=== PATIENT | female | born 1980 | race Caucasian/White ===

== ENCOUNTER → 2019-08-18 | Outpatient (CLI) | payer OTHER ==
[2019-08-18 11:26] LABS: BASO % 0.2 % (0.0-1.0); EOS # 0.2 10^3/uL (0.0-0.5); EOS % 2.8 % (0.0-3.0); HEMATOCRIT 40.8 % (36.0-47.0); HEMOGLOBIN 13.4 g/dl (12.0-15.5); LYMPH # 1.2 10^3/uL (1.5-5.0); LYMPH % 21.8 % (24.0-44.0); MEAN CORPUSCULAR HEMOGLOBIN 29.8 pg (27.0-33.0); MEAN CORPUSCULAR HGB CONC 32.8 g/dl (32.0-36.5); MEAN CORPUSCULAR VOLUME 90.7 fl (80.0-96.0); MONO # 0.3 10^3/uL (0.0-0.8); MONO % 5.6 % (0.0-5.0); NEUTROPHILS % 69.2 % (36.0-66.0); PLATELET COUNT, AUTOMATED 250 10^3/uL (150-450); WHITE BLOOD COUNT 5.7 10^3/uL (4.0-10.0)
[2019-08-18 11:39] LABS: ALBUMIN 3.6 GM/DL (3.2-5.2); ALT/SGPT 26 U/L (12-78); BILIRUBIN,TOTAL 0.9 MG/DL (0.2-1.0); BLOOD UREA NITROGEN 10 MG/DL (7-18); CALCIUM LEVEL 8.7 MG/DL (8.5-10.1); CARBON DIOXIDE LEVEL 31 MEQ/L (21-32); CHLORIDE LEVEL 105 MEQ/L (98-107); CHOLESTEROL LEVEL 179 MG/DL (<200); CHOLESTEROL RISK RATIO 3.808 (<5); FREE T4 0.94 NG/DL (0.76-1.46); GLOMERULAR FILTRATION RATE > 60.0 (>58); GLUCOSE, FASTING 79 MG/DL (70-100); HDL CHOLESTEROL 47 MG/DL (>40); LDL CHOLESTEROL 121 MG/DL (<100); NON-HDL-C 132 MG/DL; POTASSIUM SERUM 4.5 MEQ/L (3.5-5.1); SODIUM LEVEL 140 MEQ/L (136-145); TOTAL PROTEIN 6.6 GM/DL (6.4-8.2); TRIGLYCERIDES LEVEL 56 MG/DL (<150)
[2019-08-18 11:47] LABS: HEMOGLOBIN A1c 4.8 %
[2019-08-18 13:01] LABS: TOTAL 25(OH) VITAMIN D 27.5 NG/ML (30.0-100.0)
== END ==
LOC: M LRY 08:52
PROVIDERS: ATTEND Physician Assistant
DX: Z13.29 Encounter for screening for other suspected endocrine disorder (principal); Z13.220 Encounter for screening for lipoid disorders

== ENCOUNTER → 2020-12-18 | Outpatient (CLI) | payer OTHER ==
--- NOTE | 2020-12-26 10:38 | REPMRS ---
Patient History The patient states she had a clinical breast exam in 07/21 Family history of colorectal cancer at age 50 or over in maternal grandmother. Taking hormonal contraceptives for 10 years. Digital Woman Screen Mammo: December 18, 2020 - Exam #: [id number] Bilateral CC and MLO view(s) were taken. Technologist: Gabby Roy, Technologist Prior study comparison: 2019, bilateral digital mammo screening bilat, [facility]. Digital screening (2D) mammography was performed bilaterally in the CC and MLO projections. Additionally, breast tomosynthesis (3D mammography) was performed bilaterally in the CC and MLO projections. Todays exam was compared to the prior exams(s). By history, the patient has no complaints of a palpable breast abnormality or other significant breast complaints. The breasts are unchanged in size and shape.Once again, dense heterogenous nodular fibroglandular elements are seen bilaterally in a stable appearing pattern but to such a degree that the sensitivity of the mammogram in detecting cancer is somewhat decreased. There are no france-soft tissue densities or spiculated masses. There is no internal architectural distortion. There are no suspicious france-calcific clusters. Skin thickening or nipple retraction is not present. IMPRESSION: BI-RADS Category 2- Benign Findings(s). There is no evidence of malignant alteration of the breasts. Followup examination recommended in one year. The Volpara volumetric breast density category is B, there are scattered areas of fibroglandular density. This mammogram was read with the assistance of ExpertFlyer,an FDA approved computer aided detection system for mammography. The lifetime Tyrer-Cuzick score is 11.1 % Negative x-ray reports should not delay surgical consultation if a dominant or clinically suspicious mass is present. Not all breast cancers can be identified by mammography. Therefore, we recommend that you continue to perform regular breast self-examination and physical examination and then promptly contact your physician of any concerns or changes. Adenosis and dense breasts may obscure an underlying neoplasm. Assessment: BI-RADS/ACR category 2 mammogram. Benign Findings. Recommendation Routine screening mammogram of both breasts in 1 year. Electronically Signed By: Reji Veras MD 12/26/20 1037
== END ==
LOC: M WHC 14:27
PROVIDERS: ATTEND Physician Assistant
DX: Z12.31 Encounter for screening mammogram for malignant neoplasm of breast (principal); Z80.0 Family history of malignant neoplasm of digestive organs

== ENCOUNTER 2021-06-26 17:50 | Emergency (ER) | payer OTHER ==
[~2021-06-26] VITALS: Ht 175.3 cm; Wt 90.5 kg
--- OUTSIDE RECORDS SUMMARY | 2021-06-26 17:55 | CCD ---
Author Author [facility] Organization [facility] Address Unknown Phone Unavailable Care Team Providers Care Aircraft Communicator Name Role Phone MEDENT_[id number], NA Unavailable Unavailable LAROCK, Jeannine KOCH DRY ROOM ATTENDANT Unavailable Unavailable LAROCK, Jeannine KOCH DRY ROOM ATTENDANT Unavailable Unavailable LAROCK, Jeannine KOCH DRY ROOM ATTENDANT Unavailable Unavailable LAROCK, Jeannine KOCH DRY ROOM ATTENDANT Unavailable Unavailable LAROCK, Jeannine KOCH DRY ROOM ATTENDANT Unavailable Unavailable LAROCK, Jeannine KOCH DRY ROOM ATTENDANT Unavailable Unavailable LAROCK, Jeannine KOCH DRY ROOM ATTENDANT Unavailable Unavailable LAROCK, Jeannine KOCH DRY ROOM ATTENDANT Unavailable Unavailable LAROCK, Jeannine KOCH NP Unavailable Unavailable LAROCK, Jeannine KOCH NP Unavailable Unavailable LAROCK, Jeannine KOCH NP Unavailable Unavailable LAROCK, Jeannine KOCH NP Unavailable Unavailable LAROCK, Jeannine KOCH NP Unavailable Unavailable LAROCK, Jeannine KOCH NP Unavailable Unavailable LAROCK, Jeannine KOCH NP Unavailable Unavailable LAROCK, Jeannine KOCH NP Unavailable Unavailable LAROCK, Jeannine KOCH NP Unavailable Unavailable LAROCK, Jeannine KOCH NP Unavailable Unavailable LAROCK, Jeannine KOCH NP Unavailable Unavailable LAROCK, Jeannine KOCH DRY ROOM ATTENDANT Unavailable Unavailable LAROCK, Jeannine KOCH DRY ROOM ATTENDANT Unavailable Unavailable LAROCK, Jeannine KOCH DRY ROOM ATTENDANT Unavailable Unavailable ALEJANDRA, WIN EMMANUEL DRY ROOM ATTENDANT Unavailable Unavailable ALEJANDRA, WIN EMMANUEL DRY ROOM ATTENDANT Unavailable Unavailable ALEJANDRA, WIN EMMANUEL DRY ROOM ATTENDANT Unavailable Unavailable ALEJANDRA, WIN EMMANUEL DRY ROOM ATTENDANT Unavailable Unavailable ALEJANDRA, WIN EMMANUEL DRY ROOM ATTENDANT Unavailable Unavailable ALEJANDRA, WIN EMMANUEL DRY ROOM ATTENDANT Unavailable Unavailable ALEJANDRA, WIN EMMANUEL DRY ROOM ATTENDANT Unavailable Unavailable ALEJANDRA, WIN EMMANUEL DRY ROOM ATTENDANT Unavailable Unavailable ALEJANDRA, WIN EMMANUEL DRY ROOM ATTENDANT Unavailable Unavailable ALEJANDRA, WIN EMMANUEL DRY ROOM ATTENDANT Unavailable Unavailable ALEJANDRA, WIN EMMANUEL DRY ROOM ATTENDANT Unavailable Unavailable ALEJANDRA, WIN EMMANUEL DRY ROOM ATTENDANT Unavailable Unavailable ALEJANDRA, WIN EMMANUEL DRY ROOM ATTENDANT Unavailable Unavailable ALEJANDRA, WIN EMMANUEL DRY ROOM ATTENDANT Unavailable Unavailable ALEJANDRA, WIN EMMANUEL DRY ROOM ATTENDANT Unavailable Unavailable ALEJANDRA, WIN EMMANUEL DRY ROOM ATTENDANT Unavailable Unavailable ALEJANDRA, WIN EMMANUEL DRY ROOM ATTENDANT Unavailable Unavailable ALEJANDRA, WIN EMMANUEL DRY ROOM ATTENDANT Unavailable Unavailable ALEJANDRA, WIN EMMANUEL DRY ROOM ATTENDANT Unavailable Unavailable ALEJANDRA, WIN EMMANUEL DRY ROOM ATTENDANT Unavailable Unavailable ALEJANDRA, WIN EMMANUEL DRY ROOM ATTENDANT Unavailable Unavailable ALEJANDRA, WIN EMMANUEL DRY ROOM ATTENDANT Unavailable Unavailable ALEJANDRA, WIN EMMANUEL DRY ROOM ATTENDANT Unavailable Unavailable O'marshall, A Marcial PA Unavailable Unavailable O'marshall, A Marcial PA Unavailable Unavailable O'marshall, A Marcial PA Unavailable Unavailable O'marshall, A Marcial PA Unavailable Unavailable O'marshall, A Marcial PA Unavailable Unavailable O'marshall, A Marcial PA Unavailable Unavailable O'marshall, A Marcial PA Unavailable Unavailable O'marshall, A Marcial PA Unavailable Unavailable O'marshall, A Marcial PA Unavailable Unavailable O'marshall, A Marcial PA Unavailable Unavailable O'marshall, A Marcial PA Unavailable Unavailable O'marshall, A Marcial PA Unavailable Unavailable O'marshall, A Marcial PA Unavailable Unavailable O'marshall, A Marcial PA Unavailable Unavailable O'marshall, A Marcial PA Unavailable Unavailable O'marshall, A Marcial PA Unavailable Unavailable O'marshall, A Marcial PA Unavailable Unavailable O'marshall, A Marcial PA Unavailable Unavailable O'marshall, A Marcial PA Unavailable Unavailable O'marshall, A Marcial PA Unavailable Unavailable O'marshall, A Marcial PA Unavailable Unavailable O'marshall, A Marcial PA Unavailable Unavailable O'marshall, A Marcial PA Unavailable Unavailable O'marshall, A Marcial PA Unavailable Unavailable O'marshall, A Marcial PA Unavailable Unavailable O'marshall, A Marcial PA Unavailable Unavailable O'marshall, A Marcial PA Unavailable Unavailable O'marshall, A Marcial PA Unavailable Unavailable O'marshall, A Marcial PA Unavailable Unavailable O'marshall, A Marcial PA Unavailable Unavailable O'marshall, A Marcial PA Unavailable Unavailable O'marshall, A Marcial PA Unavailable Unavailable O'marshall, A Marcial PA Unavailable Unavailable Re-disclosure Warning The records that you are about to access may contain information from federally-assisted alcohol or drug abuse programs. If such information is present, then the following federally mandated warning applies: This information has been disclosed to you from records protected by federal confidentiality rules (42 CFR part 2). The federal rules prohibit you from making any further disclosure of this information unless further disclosure is expressly permitted by the written consent of the person to whom it pertains or as otherwise permitted by 42 CFR part 2. A general authorization for the release of medical or other information is NOT sufficient for this purpose. The Federal rules restrict any use of the information to criminally investigate or prosecute any alcohol or drug abuse patient.The records that you are about to access may contain highly sensitive health information, the redisclosure of which is protected by Article 27-F of the [facility] Public Health law. If you continue you may have access to information: Regarding HIV / AIDS; Provided by facilities licensed or operated by the [facility] Office of Mental Health; or Provided by the [facility] Office for People With Developmental Disabilities. If such information is present, then the following [facility] mandated warning applies: This information has been disclosed to you from confidential records which are protected by state law. State law prohibits you from making any further disclosure of this information without the specific written consent of the person to whom it pertains, or as otherwise permitted by law. Any unauthorized further disclosure in violation of state law may result in a fine or shelter sentence or both. A general authorization for the release of medical or other information is NOT sufficient authorization for further disc losure. Encounters Encounter Providers Location Date Indications Data Source(s ) Outpatient Attender: Marcial [facility] 04/30/2021 01:00:00 PM EDT TANYA ([facility]) Outpatient Attender: ZEE VENEGAS NP 01/31 09:56:37 AM EDT - 02/19/2021 10:10:05 AM EDT [facility] ([facility] ) Outpatient Attender: [facility]cial [facility] 11/01/2020 02:00:00 PM EST TANYA ([facility]) Outpatient Attender: SHIV MARTÍNEZ_806 [facility] 06/23/2020 11:00:00 AM EDT MEDALLI ([facility]) Outpatient Attender: EMMANUEL ALEJANDRA NP 10:55:00 AM EDT - 06/22/2020 10:55:00 AM EDT [facility] Outpatient Attender: EMMANUEL ALEJANDRA NP Family Practice 05/23/2020 10 :30:00 AM EDT MEDENT ([facility]) Outpatient Attender: EMMANUEL ALEJANDRA NP 10:27:00 AM EDT - 05/23/2020 10:27:00 AM EDT [facility] Outpatient Attender: EMMANUEL ALEJANDRA NP 10:08:00 AM EDT - 04/26/2020 10:08:00 AM EDT [facility] Immunizations Vaccine Date Status Description Data Source(s) COVID-19 VACCINE Pfizer 10/25/2020 12:00:00 AM EST completed [facility] Vaccine Series Complete: NOThis Data was Submitted to [facility] Via [employer] in 2011. IIV4 06/23/2020 10:43:00 AM EDT completed MEDENT ([facility]) Medications Medication Brand Name Start Date Product Form Dose Route Admi nistrative Instructions Pharmacy Instructions Status Indications Reaction Description Data Source(s) Injection Ketorolac Tromethamine Per 15 MG (Toradol) 04/30/2021 12:00:00 AM EDT completed MEDENT ([facility]) Medication administered onsite Naproxen 500 MG Oral Tablet Naproxen 04/30/2021 12:00:00 AM EDT active [facility] ([facility]) Cyclobenzaprine hydrochloride 10 MG Oral Tablet Cyclobenzapr ine HCL 04/30/2021 12:00:00 AM EDT ORAL active M EDENT ([facility]) Immunization Administration Single Or Combination 06/23/2020 12:00:00 AM EDT completed MEDENT ([facility]) Medication administered onsite Insurance Providers Payer name Policy type / Coverage type Policy ID Covered libertarian ID Covered libertarian's relationship to moeller Policy Moeller Plan Information Family Health Plan / [id number] Self [id number] [facility] [id number] SP [id number] [facility] [place] [id number] [facility] [place] [id number] 18 [id number] Problems, Conditions, and Diagnoses Code Display Name Description Problem Type Effective Dates Data Source(s) [id number] Encounter for routine checking of intrau terine contraceptive device Encounter for routine checking of intrauterine contraceptive device Diagnosis 06/22/2020 10:55:00 AM EDT [facility] [id number] Encounter for removal and re insertion of intrauterine contraceptive device Encounter for removal and reinsertion of intrauterine contraceptive device Diagnosis 05/23/2020 10:27:00 AM EDT [facility] G43.009 Migraine without aura, not refractory Mi graine without aura, not refractory Problem 11/01/2020 12:00:00 AM EST MED[facility] ([facility]) Z97.5 IUD contraception IUD contraception Problem 11/01/2020 12:00:00 AM EST MED[facility] ([facility]) Surgeries/Procedures Procedure Description Date Indications Data Source(s) OFFICE OUTPATIENT VISIT 15 MINUTES 04/30/2021 12:00:00 AM EDT MEDENT ([facility]) Mammography (procedure) 12/18/2020 12:00:00 AM EDT MED[facility] ([facility]) PERIODIC PREVENTIVE MED EST PATIENT 40-64YRS 12:00:00 AM EST MED[facility] ([facility]) Results ID Date Data Source [id number] 05/23/2020 11:22:00 AM EDT MED[facility] ([facility]) Name Value Range Interpretation Code Description Data Juli rce(s) Supporting Document(s) Chlamydia trachomatis,Tegan Laboratory test result MEDENT ([facility]) {SOURCE: Genital~.~.~Z30.433 Source: Laboratory test result MEDENT ([facility]) {SOURCE: Genital~.~.~Z30.433 Neisseria gonorrhoeae,Tegan Laboratory test result MED[facility] ([facility]) {SOURCE: Genital~.~.~Z30.433 ID Date Data Source [id number] 05/25/2020 08:25:00 PM EDT [facility] Name Value Range Interpretation Code Description Data Juli rce(s) Supporting Document(s) SOURCE: Genital [facility] Chlamydia trachomatis rRNA [Presence] in Unspecified specimen by Probe and target amplification method Negative Negative [facility] Neisseria gonorrhoeae rRNA [Presence] in Unspecified specimen by Probe and target amplification method Negative Negative [facility] ID Date Data Source [id number] 05/23/2020 10:37:00 AM EDT MED[facility] ([facility]) Name Value Range Interpretation Code Description Data Juli rce(s) Supporting Document(s) Inhouse Urine Test [facility] Procedure Social History No Information Vital Signs ID Date Data Source UNK Name Value Range Interpretation Code Description Data Source(s) Body mass index (BMI) [Ratio] 29.2 kg/m2 29.2 k g/m2 MED[facility] ([facility]) Heart rate 88 /min 88 /min MED[facility] ([facility]) Respiratory rate 18 /min 18 /min MED[facility] ( [facility]) Body temperature 97.9 [degF] 97.9 [degF] MEDENT ([facility]) Oxygen saturation in Arterial blood by Pulse oximetry 99 % 99 % [facility] ([facility] [place] body weight 140 [lb_av] 140 [lb_av] MEDEN T ([facility]) Systolic blood pressure 132 mm[Hg] 132 mm[Hg] EDENT ([facility]) Diastolic blood pressure 85 mm[Hg] 85 mm[Hg] MED[facility] ([facility]) Body height 68 [in_i] 68 [in_i] [facility] 5'8" Body weight 192.00 [lb_av] 192.00 [lb_av] MEDEN T ([facility]) Body weight 185.50 [lb_av] 185.50 [lb_av] MEDEN T ([facility]) Body mass index (BMI) [Ratio] 28.2 kg/m2 28.2 k g/m2 MED[facility] ([facility]) Heart rate 93 /min 93 /min MED[facility] ([facility]) Respiratory rate 18 /min 18 /min MED[facility] ( [facility]) Body temperature 98.5 [degF] 98.5 [degF] MEDENT ([facility]) Oxygen saturation in Arterial blood by Pulse oximetry 98 % 98 % [facility]) [place] body weight 140 [lb_av] 140 [lb_av] MEDEN T ([facility]) Systolic blood pressure 126 mm[Hg] 126 mm[Hg] M EDENT ([facility]) Diastolic blood pressure 64 mm[Hg] 64 mm[Hg] MEDENT ([facility]) Body height 68 [in_i] 68 [in_i] MED[facility] ([facility]) 5'8" Body weight 184.00 [lb_av] 184.00 [lb_av] MEDEN T ([facility]) Body weight 83.462 kg 83.462 kg MED[facility] ([facility]) Body height 69.25 [in_i] 69.25 [in_i] MEDENT ([facility]) 5'9.25" Systolic blood pressure 124 mm[Hg] 124 mm[Hg] M EDENT ([facility]) Diastolic blood pressure 83 mm[Hg] 83 mm[Hg] MED[facility] ([facility]) Heart rate 76 /min 76 /min [facility] ([facility]) Body temperature 97.7 [degF] 97.7 [degF] MED[facility] ([facility]) Body mass index (BMI) [Ratio] 27.0 kg/m2 27.0 k g/m2 MED[facility] ([facility]) Body surface area Derived from formula 2.00 m2 2.00 m2 MED[facility] ([facility]) Body height 69.25 [in_i] 69.25 [in_i] MEDENT ([facility]) 5'9.25" Body mass index (BMI) [Ratio] 27.0 kg/m2 27.0 k g/m2 MED[facility] ([facility]) Systolic blood pressure 108 mm[Hg] 108 mm[Hg] M EDENT ([facility]) Diastolic blood pressure 75 mm[Hg] 75 mm[Hg] MED[facility] ([facility]) Body weight 83.462 kg 83.462 kg MED[facility] ([facility]) Body surface area Derived from formula 2.00 m2 2.00 m2 MED[facility] ([facility]) Heart rate 80 /min 80 /min [facility] ([facility]) Body temperature 98.1 [degF] 98.1 [degF] MED[facility] ([facility]) Body weight 184.00 [lb_av] 184.00 [lb_av] MEDEN T ([facility])
--- OUTSIDE RECORDS SUMMARY | 2021-06-26 17:55 | CCD | Continuity of Care Document ---
Demographics Address [id number] [place] [address] Home Phone [phone] Preferred Language Unknown Marital Status Unknown Yarsanism Affiliation Unknown Race White Ethnic Group Not or Author Author Indy MORENO Organization [place] [address] Phone [phone] Care Team Providers Care Cylinder Filler Name Role Phone Ericka Sesay D.O. AUTM [phone] Problems Active Problems Provider Date IUD contraception HUBER Saunders Onset: 11/01/2020 Migraine without aura, not refractory HUBER Saunders On set: 11/01/2020 Social History Type Date Description Comments Sex Unknown ETOH Use Denies alcohol use Tobacco Use Start: Unknown Patient has never smoked Recreational Drug Use Denies Drug Use Exercise Type/Frequency Cardio 2-3 time s a week Exercise Type/Frequency Lifts weights 3 times a week Sun Exposure Uses sunscreen Seat Belt/Car Seat Always uses seat belt Allergies, Adverse Reactions, Alerts Description No Known Drug Allergies Medications Active Medications SIG Qnty Indications Ordering Provide r Date Cyclobenzaprine HCL 10mg Tablets take one tablet twice a day by mouth. 60tabs S29.012A Jeet PhilippeOGer 04/30/2021 Naproxen 500mg Tablets take one tab with food twice a day as needed 180tabs S29.012A Jeet MartínezOGer 04/30/2021 Vitamin D3 Ultra Strength 125mcg (5000 Ut) Capsules 1 by mouth every day 90caps Shiva Martínez.O. 08/20/2019 Multivitamin Adult Tablets 1 by mouth every day Unknown Excedrin Migraine [phone] Tab lets as needed pain Unknown Vitamin C 500mg Capsules 2 by mouth every day Unknown Mirena (52 MG) 20mcg/24HR IUD Unknown Medications Administered in Office Medication SIG Qnty Indications Ordering Provider Date Injection Ketorolac Tromethamine Per 15 MG (Toradol) Injection HUBER Zaldivar 04/30/2021 Immunization Administration Single Or Co mbination Injection Nurse 06/23/2020 Immunizations CPT Code Status Date Vaccine Lot # [id number] Given 06/23/2020 Influenza Virus Vaccine, Quadrivalent, Split, Preservative Free [id number] Vital Signs Date Vital Result Comment 04/30/2021 1:03pm BP Systolic 132 mmHg BP Diastolic 85 mmHg Height 68 inches 5'8" Weight 192.00 lb BMI (Body Mass Index) 29.2 kg/m2 Heart Rate 88 /min Respiratory Rate 18 /min Body Temperature 97.9 F O2 % BldC Oximetry 99 % [place] Body Weight 140 lb 11/01/2020 2:57pm BP Systolic 126 mmHg BP Diastolic 64 mmHg Height 68 inches 5'8" Weight 185.50 lb BMI (Body Mass Index) 28.2 kg/m2 Heart Rate 93 /min Respiratory Rate 18 /min Body Temperature 98.5 F O2 % BldC Oximetry 98 % [place] Body Weight 140 lb Results Description No Information Available Procedures Date Code Description Status 04/30/2021 58478 Office/Outpatient Established Lo w MDM 20-29 Min Completed 12/18/2020 [id number] Mammogram Completed 11/01/2020 33016 Preventive Visit Est 40-64 Yrs C ompleted Medical Devices Description No Information Available Encounters Type Date Location Provider Dx Diagnosis Office Visit 04/30/2021 1:00p Family Medicine [facility] HUBER Saunders S29.012A Strain of muscle and tendon of back wall of thorax, init Office Visit 11/01/2020 3:00p Family Medicine [facility] HUBER Saunders Z00.00 Encntr for general adult med ical exam w/o abnormal findings Z12.31 Encntr screen mammogram for malignant neoplasm of breast Z97.5 Presence of (intrauterine) c ontraceptive device G43.009 Migraine w/o aura, not intra ctable, w/o status migrainosus Assessments Date Code Description Provider 04/30/2021 S29.012A Strain of muscle and tendon of back wall of thorax, initial encounter HUBER Saunders 11/01/2020 Z00.00 Encounter for genera l adult medical examination without abnormal findings HUBER Saunders 11/01/2020 Z12.31 Encounter for screen ing mammogram for malignant neoplasm of breast HUBER Saunders 11/01/2020 Z97.5 Presence of (intrauterine) contr aceptive device HUBER Saunders 11/01/2020 G43.009 Migraine without aur a, not intractable, without status migrainosus HUBER Saunders Plan of Treatment Future Appointment(s):* 11/05/2021 4:00 pm - HUBER Saunders at [facility] Functional Status Description No Information Available Mental Status Description No Information Available Referrals Description No Information Available
[2021-06-26] MEDS ORDERED: MIRE1IUD IU (18:11)
[2021-06-26] MEDS ORDERED: NS 1,000 ML IV ONE (18:55)
[2021-06-26] MEDS ORDERED: ONDANSETRON 4MG/2ML VIAL IV ONE (18:55)
[2021-06-26] MEDS ORDERED: KETOROLAC 30 MG/ML 1ML VIAL IV ONE (18:55)
[2021-06-26 19:53] LABS: BASO % 0.3 % (0.0-1.0); EOS % 0.3 % (0.0-3.0); HEMATOCRIT 42.5 % (36.0-47.0); LYMPH # 1.6 10^3/uL (1.5-5.0); LYMPH % 12.5 % (24.0-44.0); MEAN CORPUSCULAR HEMOGLOBIN 29.8 pg (27.0-33.0); MEAN CORPUSCULAR HGB CONC 32.9 g/dl (32.0-36.5); MEAN CORPUSCULAR VOLUME 90.4 fl (80.0-96.0); MONO # 0.7 10^3/uL (0.0-0.8); MONO % 5.1 % (2.0-8.0); NEUTROPHILS # 10.3 10^3/uL (1.5-8.5); NEUTROPHILS % 81.4 % (36.0-66.0); PLATELET COUNT, AUTOMATED 257 10^3/uL (150-450); WHITE BLOOD COUNT 12.7 10^3/uL (4.0-10.0)
--- OUTSIDE RECORDS SUMMARY | 2021-06-26 19:56 | CCD ---
Author Author [facility] Organization [facility] Address Unknown Phone Unavailable Care Team Providers Care Dem[employer] Name Role Phone MEDENT_[id number], NA Unavailable Unavailable LAROCK, Jaennine KOCH PRACTICE MANAGER Unavailable Unavailable LAROCK, Jeannine KOCH PRACTICE MANAGER Unavailable Unavailable LAROCK, Jeannine KOCH PRACTICE MANAGER Unavailable Unavailable LAROCK, Jeannine KOCH PRACTICE MANAGER Unavailable Unavailable LAROCK, Jeannine KOCH PRACTICE MANAGER Unavailable Unavailable LAROCK, Jeannine KOCH PRACTICE MANAGER Unavailable Unavailable LAROCK, Jeannine KOCH PRACTICE MANAGER Unavailable Unavailable LAROCK, Jeannine KOCH PRACTICE MANAGER Unavailable Unavailable LAROCK, Jeannine KOCH PRACTICE MANAGER Unavailable Unavailable LAROCK, Jeannine KOCH NP Unavailable Unavailable LAROCK, Jeannine KOCH PRACTICE MANAGER Unavailable Unavailable LAROCK, Jeannine KOCH PRACTICE MANAGER Unavailable Unavailable LAROCK, Jeannine KOCH PRACTICE MANAGER Unavailable Unavailable LAROCK, Jeannine KOCH PRACTICE MANAGER Unavailable Unavailable LAROCK, Jeannine KOCH PRACTICE MANAGER Unavailable Unavailable LAROCK, Jeannine KOCH PRACTICE MANAGER Unavailable Unavailable LAROCK, Jeannine KOCH PRACTICE MANAGER Unavailable Unavailable LAROCK, Jeannine KOCH PRACTICE MANAGER Unavailable Unavailable LAROCK, Jeannine KOCH PRACTICE MANAGER Unavailable Unavailable LAROCK, Jeannine KOCH PRACTICE MANAGER Unavailable Unavailable LAROCK, Jeannine KOCH PRACTICE MANAGER Unavailable Unavailable LAROCK, Jeannine KOCH PRACTICE MANAGER Unavailable Unavailable ALEJANDRA, WIN EMMANUEL PRACTICE MANAGER Unavailable Unavailable ALEJANDRA, WIN EMMANUEL PRACTICE MANAGER Unavailable Unavailable ALEJANDRA, WIN EMMANUEL PRACTICE MANAGER Unavailable Unavailable ALEJANDRA, WIN EMMANUEL PRACTICE MANAGER Unavailable Unavailable ALEJANDRA, WIN EMMANUEL PRACTICE MANAGER Unavailable Unavailable ALEJANDRA, IWN EMMANUEL PRACTICE MANAGER Unavailable Unavailable ALEJANDRA, WIN EMMANUEL PRACTICE MANAGER Unavailable Unavailable ALEJANDRA, WIN EMMANUEL PRACTICE MANAGER Unavailable Unavailable ALEJANDRA, WIN EMMANUEL PRACTICE MANAGER Unavailable Unavailable ALEJANDRA, WIN EMMANUEL PRACTICE MANAGER Unavailable Unavailable ALEJANDRA, WIN EMMANUEL PRACTICE MANAGER Unavailable Unavailable ALEJANDRA, WIN EMMANUEL PRACTICE MANAGER Unavailable Unavailable ALEJANDRA, WIN EMMANUEL PRACTICE MANAGER Unavailable Unavailable ALEJANDRA, WIN EMMANUEL PRACTICE MANAGER Unavailable Unavailable ALEJANDRA, WIN EMMANUEL PRACTICE MANAGER Unavailable Unavailable ALEJANDRA, WIN EMMANUEL PRACTICE MANAGER Unavailable Unavailable ALEJANDRA, WIN EMMANUEL PRACTICE MANAGER Unavailable Unavailable ALEJANDRA, WIN EMMANUEL PRACTICE MANAGER Unavailable Unavailable ALEJANDRA, WIN EMMANUEL PRACTICE MANAGER Unavailable Unavailable ALEJANDRA, WIN EMMANUEL PRACTICE MANAGER Unavailable Unavailable ALEJANDRA, WIN EMMANUEL PRACTICE MANAGER Unavailable Unavailable ALEJANDRA, WIN EMMANUEL PRACTICE MANAGER Unavailable Unavailable ALEJANDRA, WIN EMMANUEL PRACTICE MANAGER Unavailable Unavailable O'marshall, A Marcial PA Unavailable [...] is protected by Article 27-F of the [facility] Public Health law. If you continue you may have access to information: Regarding HIV / AIDS; Provided by facilities licensed or operated by the [facility] Office of Mental Health; or Provided by the [facility] Office for People With Developmental Disabilities. If such information is present, then the following [facility] mandated warning applies: This information has been [...] law may result in a fine or correction sentence or both. A general authorization for the release of medical or other information is NOT sufficient authorization for further disc losure. Encounters Encounter Providers Location Date Indications Data Source(s ) Outpatient Attender: [facility] 04/30/2021 01:00:00 PM EDT TANY[facility] ([facility]) Outpatient Attender: ZEE VENEGAS NP 01/31 09:56:37 AM EDT - 02/19/2021 10:10:05 AM EDT [facility] ([facility] ) Outpatient Attender: [facility] 11/01/2020 02:00:00 PM EST [facility] ([facility]) Outpatient Attender: SHIV MARTÍNEZ_[id number] [facility] 06/23/2020 11:00:00 AM EDT MEDALLI ([facility]) Outpatient Attender: EMMANUEL ALEJANDRA NP 10:55:00 AM EDT - 06/22/2020 10:55:00 AM EDT [facility] Outpatient Attender: EMMANUEL ALEJANDRA NP Family Practice 05/23/2020 10 :30:00 AM EDT [facility] ([facility]) Outpatient Attender: EMMANUEL ALEJANDRA NP 09/22/2 020 10:27:00 AM EDT - 05/23/2020 10:27:00 AM EDT [facility] Outpatient Attender: EMMANUEL ALEJANDRA PRACTICE MANAGER 10:08:00 AM EDT - 04/26/2020 10:08:00 AM EDT [facility] Immunizations Vaccine Date Status Description Data Source(s) COVID-19 VACCINE Pfizer 10/25/2020 12:00:00 AM EST completed [facility] Vaccine Series Complete: NOThis Data was Submitted to [facility] Via [employer] in 2011. IIV4 06/23/2020 10:43:00 AM EDT completed [facility] ([facility]) Medications Medication Brand Name Start Date Product Form Dose Route Admi nistrative Instructions Pharmacy Instructions Status Indications Reaction Description Data Source(s) Injection Ketorolac Tromethamine Per 15 MG (Toradol) 04/30/2021 12:00:00 AM EDT completed [facility] ([facility]) Medication administered onsite Naproxen 500 MG Oral Tablet Naproxen 04/30/2021 12:00:00 AM EDT active [facility] ([facility]) Cyclobenzaprine hydrochloride 10 MG Oral Tablet Cyclobenzapr ine HCL 04/30/2021 12:00:00 AM EDT ORAL active EDENT ([facility]) Immunization Administration Single Or Combination 06/23/2020 12:00:00 AM EDT completed MED[facility] ([facility]) Medication administered onsite Insurance Providers Payer name Policy type / Coverage type Policy ID Covered democrat ID Covered democrat's relationship to moeller Policy Moeller Plan Information Family Health Plan / [id number] Self [id number] [facility] [id number] SP [id number] [facility] [place] [id number] [id number] [employer] [facility] [facility] [place] [id number] Problems, Conditions, and Diagnoses Code Display Name Description Problem Type Effective Dates Data Source(s) C76913 Encounter for routine checking of intrau terine contraceptive device Encounter for routine checking of intrauterine contraceptive device Diagnosis 06/22/2020 10:55:00 AM EDT [facility] [id number] Encounter for removal and re insertion of intrauterine contraceptive device Encounter for removal and reinsertion of intrauterine contraceptive device Diagnosis 05/23/2020 10:27:00 AM EDT [facility] G43.009 Migraine without aura, not refractory Mi graine without aura, not refractory Problem 11/01/2020 12:00:00 AM EST [facility] ([facility]) Z97.5 IUD contraception IUD contraception Problem 11/01/2020 12:00:00 AM EST MED[facility] ([facility]) Surgeries/Procedures Procedure Description Date Indications Data Source(s) OFFICE OUTPATIENT VISIT 15 MINUTES 04/30/2021 12:00:00 AM EDT [facility] ([facility]) Mammography (procedure) 12/18/2020 12:00:00 AM EDT [facility] ([facility]) PERIODIC PREVENTIVE MED EST PATIENT 40-64YRS 12:00:00 AM EST [facility] ([facility]) Results ID Date Data Source [id number] 05/23/2020 11:22:00 AM EDT [facility] ([facility]) Name Value Range Interpretation Code Description Data Juli rce(s) Supporting Document(s) Chlamydia trachomatis,Tegan Laboratory test result MED[facility] ([facility]) {SOURCE: Genital~.~.~Z30.433 Source: Laboratory test result [facility] ([facility]) {SOURCE: Genital~.~.~Z30.433 Neisseria gonorrhoeae,Tegan Laboratory test result [facility] ([facility]) {SOURCE: Genital~.~.~Z30.433 ID Date Data Source [id number] 05/25/2020 08:25:00 PM EDT [facility] Name Value Range Interpretation Code Description Data Juli rce(s) Supporting Document(s) SOURCE: Genital [facility] Chlamydia trachomatis rRNA [Presence] in Unspecified specimen by Probe and target amplification method Negative Negative [facility] Neisseria gonorrhoeae rRNA [Presence] in Unspecified specimen by Probe and target amplification method Negative Negative [facility] ID Date Data Source [id number] 05/23/2020 10:37:00 AM EDT [facility] ([facility]) Name Value Range Interpretation Code Description Data Juli rce(s) Supporting Document(s) Inhouse Urine Test [facility]) Procedure Social History No Information Vital Signs ID Date Data Source UNK Name Value Range Interpretation Code Description Data Source(s) Body mass index (BMI) [Ratio] 29.2 kg/m2 29.2 k g/m2 MED[facility] ([facility]) Systolic blood pressure 132 mm[Hg] 132 mm[Hg] M EDENT ([facility]) Diastolic blood pressure 85 mm[Hg] 85 mm[Hg] [facility] ([facility]) Body height 68 [in_i] 68 [in_i] [facility] ([facility]) 5'8" Body weight 192.00 [lb_av] 192.00 [lb_av] MEDEN T ([facility]) Heart rate 88 /min 88 /min [facility] ([facility]) Respiratory rate 18 /min 18 /min [facility] ( [facility]) Body temperature 97.9 [degF] 97.9 [degF] [facility] ([facility]) Oxygen saturation in Arterial blood by Pulse oximetry 99 % 99 % [facility] ([facility]) [place] body weight 140 [lb_av] 140 [lb_av] MEDEN T ([facility]) Systolic blood pressure 126 mm[Hg] 126 mm[Hg] M EDENT ([facility]) Body weight 185.50 [lb_av] 185.50 [lb_av] MEDEN T ([facility]) Body mass index (BMI) [Ratio] 28.2 kg/m2 28.2 k g/m2 [facility] ([facility]) Heart rate 93 /min 93 /min [facility] ([facility]) Respiratory rate 18 /min 18 /min [facility] ( [facility]) Body temperature 98.5 [degF] 98.5 [degF] [facility] ([facility]) Oxygen saturation in Arterial blood by Pulse oximetry 98 % 98 % [facility] [place] body weight 140 [lb_av] 140 [lb_av] MEDEN T ([facility]) Diastolic blood pressure 64 mm[Hg] 64 mm[Hg] [facility] ([facility]) Body height 68 [in_i] 68 [in_i] [facility] ([facility]) 5'8" Body weight 184.00 [lb_av] 184.00 [lb_av] MEDEN T ([facility]) Body weight 83.462 kg 83.462 kg [facility] ([facility]) Body height 69.25 [in_i] 69.25 [in_i] MED[facility] ([facility]) 5'9.25" Systolic blood pressure 124 mm[Hg] 124 mm[Hg] M EDENT ([facility]) Diastolic blood pressure 83 mm[Hg] 83 mm[Hg] [facility] ([facility]) Heart rate 76 /min 76 /min [facility] ([facility]) Body temperature 97.7 [degF] 97.7 [degF] [facility] ([facility]) Body mass index (BMI) [Ratio] 27.0 kg/m2 27.0 k g/m2 [facility] ([facility]) Body surface area Derived from formula 2.00 m2 2.00 m2 [facility] ([facility]) Body height 69.25 [in_i] 69.25 [in_i] [facility] ([facility]) 5'9.25" Body mass index (BMI) [Ratio] 27.0 kg/m2 27.0 k g/m2 [facility] ([facility]) Systolic blood pressure 108 mm[Hg] 108 mm[Hg] M EDENT ([facility]) Diastolic blood pressure 75 mm[Hg] 75 mm[Hg] [facility] ([facility]) Heart rate 80 /min 80 /min [facility] ([facility]) Body temperature 98.1 [degF] 98.1 [degF] [facility] ([facility]) Body weight 184.00 [lb_av] 184.00 [lb_av] MEDEN T ([facility]) Body weight 83.462 kg 83.462 kg [facility] ([facility]) Body surface area Derived from formula 2.00 m2 2.00 m2 MEDALLI ([facility])
[2021-06-26 20:20] LABS: ALBUMIN 3.9 GM/DL (3.2-5.2); ALT/SGPT 29 U/L (12-78); BILIRUBIN,DIRECT < 0.1 MG/DL (0.0-0.2); BILIRUBIN,TOTAL 0.4 MG/DL (0.2-1.0); LIPASE 84 U/L (73-393); TOTAL PROTEIN 7.2 GM/DL (6.4-8.2)
[2021-06-26 20:26] LABS: RSV AMPLIFICATION NEGATIVE (NEGATIVE)
[2021-06-26] MEDS ORDERED: ISOVUE-370 76% 100ML VIAL As Ordered ONE (20:54)
--- NOTE | 2021-06-26 21:33 | REPVR ---
PROCEDURE INFORMATION: Exam: CT Abdomen And Pelvis With Contrast Exam date and time: 06/26/2021 8:54 PM Age: 41 years old Clinical indication: Abdominal pain; Additional info: Rlq pain TECHNIQUE: Imaging protocol: Computed tomography of the abdomen and pelvis with contrast. Radiation optimization: All CT scans at this facility use at least one of these dose optimization techniques: automated exposure control; mA and/or kV adjustment per patient size (includes targeted exams where dose is matched to clinical indication); or iterative reconstruction. Contrast material: ISO 370; Contrast volume: 100 ml; Contrast route: INTRAVENOUS (IV); COMPARISON: No relevant prior studies available. FINDINGS: Liver: 3.2 cm hypoattenuating mass in the lateral aspect of segment 2 left lobe of the liver demonstrating peripheral nodular enhancement, findings consistent with an incompletely opacified hemangioma. Liver otherwise unremarkable. There is a diffuse decrease in hepatic parenchymal density, consistent with steatosis. Gallbladder and bile ducts: The gallbladder is incompletely distended. This is most likely related to incomplete fasting. Clinical correlation to exclude gallbladder pathology suggested. Pancreas: Normal. No ductal dilation. Spleen: Borderline splenomegaly. Adrenal glands: Normal. No mass. Kidneys and ureters: Normal. No hydronephrosis. Stomach and bowel: Unremarkable. No obstruction. No mucosal thickening. Appendix: The appendix is within normal limits. There is no appendiceal enlargement, periappendiceal inflammatory changes or abscess. Intraperitoneal space: Unremarkable. No free air. No significant fluid collection. Vasculature: Unremarkable. No abdominal aortic aneurysm. Lymph nodes: Unremarkable. No enlarged lymph nodes. Urinary bladder: Unremarkable as visualized. Reproductive: IUD demonstrated centrally within the uterus. Bones/joints: Mild central spinal stenosis L4-L5. Bulging annulus L5-S1. Soft tissues: Unremarkable. IMPRESSION: 1. Findings compatible with a incompletely opacified hemangioma left lobe of the liver. 2. The gallbladder is incompletely distended. This is most likely related to incomplete fasting. Clinical correlation to exclude gallbladder pathology suggested. 3. The appendix is within normal limits. There is no appendiceal enlargement, periappendiceal inflammatory changes or abscess. 4. There is a diffuse decrease in hepatic parenchymal density, consistent with steatosis. Electronically signed by: Arie Lopez On 06/26/2021 21:33:30 PM
[2021-06-26] MEDS ORDERED: ONDA4TAB6 PO (21:43)
[2021-06-26 21:54] VITALS: BP 112/80
== END 2021-06-26 21:55 | disposition home or self-care (01) ==
LOC: M ED 17:50
DX: K52.9 Noninfective gastroenteritis and colitis, unspecified (principal); Z97.5 Presence of (intrauterine) contraceptive device
CPT/HCPCS: 74177; 80047; 80076; 81001; 83690; 84484; 84702; 85025; 87631; 87880; 96361; 96374; 96375; 99284; J1885; J2405; Q9967

== ENCOUNTER → 2021-09-07 | Outpatient (REF) ==
[~2021-09-07] MED LIST: MIRE1IUD IU; ONDA4TAB6 PO
== END ==
LOC: M LABSMTC 11:45
PROVIDERS: ATTEND Pediatrics
DX: Z11.52 Encounter for screening for COVID-19 (principal); Z20.822 Contact with and (suspected) exposure to COVID-19